=== PATIENT | female | born 1995 | race Caucasian/White ===

== ENCOUNTER 2024-04-19 07:46 | Emergency (ER) | payer SELFPAY ==
[2024-04-19 07:54] VITALS: BMI 21.9
[2024-04-19 08:29] LABS: EPI CELLS >36 /uL (0-25.1); HYALINE CASTS 3 /uL (0-3.1); URINE APPEARANCE CLEAR; URINE BACTERIA 646 /uL (0-1359); URINE BILIRUBIN NEGATIVE (NEGATIVE); URINE COLOR DK YELLOW; URINE GLUCOSE (UA) NEGATIVE (NEGATIVE); URINE KETONE 1+ (NEGATIVE); URINE LEUK ESTERASE NEGATIVE (NEGATIVE); URINE NITRITE NEGATIVE (NEGATIVE); URINE PROTEIN 2+ (NEGATIVE); URINE WBC 24 /uL (0-25.8)
[2024-04-19] MEDS ORDERED: ACETAMINOPHEN INJECTION 100 ML IVPB ONE (08:50)
[2024-04-19] MEDS ORDERED: METOCLOPRAMIDE HCL INJECTION 10 MG/2 ML VIAL ONE (08:50)
[2024-04-19] MEDS ORDERED: FAMOTIDINE 20 MG/50 ML IVPB 20 MG/50 ML MG IVPB ONE (08:50)
[2024-04-19 08:55] LABS: HCG,QUALITATIVE URINE Negative
[2024-04-19] MEDS: SODIUM CHLORIDE 1,000 ML IV ONE (09:07)
[2024-04-19] MEDS: ACETAMINOPHEN 1000 MG/100 ML BAG IVPB ONE (09:08)
[2024-04-19] MEDS: METOCLOPRAMIDE HCL INJECTION 10 MG/2 ML VIAL IVPUSH ONE (09:15)
[2024-04-19 09:20] LABS: URINE RBC 31.1 /uL (0-23.9)
[2024-04-19 09:25] LABS: BASO % 0.3 % (0-2.0); HEMATOCRIT 44.2 % (32.4-45.2); HEMOGLOBIN 15.2 GM/dL (10.7-15.3); LYMPH % 9.4 % (8-40); MCH 30.2 pg (25.7-33.7); MCHC 34.3 g/dl (32.0-36.0); MEAN CELL VOLUME 88.1 fl (80-96); MEAN PLT VOLUME 9.5 fl (7.5-11.1); MONO % 8.2 % (3.8-10.2); NEUT % 82.1 % (42.8-82.8); PLATELET COUNT 289 10^3/uL (134-434); RBC 5.01 M/mm3 (3.60-5.2); RDW 13.3 % (11.6-15.6); WHITE BLOOD COUNT 15.5 K/mm3 (4.0-10.0)
[2024-04-19] MEDS: FAMOTIDINE 20 MG/50 ML IVPB 20 MG in PREMIX 50 IVPB ONE (09:42)
[2024-04-19 09:47] LABS: CALCIUM 9.8 mg/dL (8.5-10.1)
[2024-04-19 09:48] LABS: BLOOD UREA NITROGEN 19.5 mg/dL (7-18)
[2024-04-19 09:49] LABS: ALBUMIN 4.8 g/dl (3.4-5.0)
[2024-04-19 09:52] LABS: TOT PROT 8.6 g/dl (6.4-8.2)
[2024-04-19 10:58] VITALS: BP 137/80; PULSE 62; RESP 62; TEMP 98
== END 2024-04-19 10:58 | disposition home or self-care (01) ==
LOC: JER 07:46
PROC: 3E033GC Introduction of Other Therapeutic Substance into Peripheral Vein, Percutaneous Approach (ICD-10-PCS; principal; 2024-04-19)
PROC: 3E033NZ Introduction of Analgesics, Hypnotics, Sedatives into Peripheral Vein, Percutaneous Approach (ICD-10-PCS; 2024-04-19)
PROC: 3E033GC Introduction of Other Therapeutic Substance into Peripheral Vein, Percutaneous Approach (ICD-10-PCS; 2024-04-19)
DX: R11.2 Nausea with vomiting, unspecified (principal); R10.84 Generalized abdominal pain
CPT/HCPCS: 36415; 80053; 81003; 83690; 84703; 85025; 99284-25; J0131